=== PATIENT | male | born 1985 | race American Indian/Alaskan Native ===

== ENCOUNTER 2016-10-21 08:38 | Emergency (ER) | payer MEDICARE ==
[2016-10-21 10:10] LABS: Basophils % (Auto) 0.6 % (0.0-1.8); Eosinophils % (Auto) 1.2 % (0.0-4.3); Hematocrit 34.9 % (35.5-45.6); Mean Corpuscular HGB Conc 32 % (32-34); Mean Corpuscular Volume 81 fl (84-94); Platelet Count 264 K/mm3 (140-440); Red Cell Distribution Width 15.6 % (13.2-15.2); White Blood Count 7.6 K/mm3 (4.5-11.0)
[2016-10-21 10:26] LABS: Anion Gap 14 mmol/L; Blood Urea Nitrogen 6 mg/dL (9-20); Calcium 8.9 mg/dL (8.4-10.2); Carbon Dioxide 31 mmol/L (22-30); Chloride 98.4 mmol/L (98-107); Creatine Kinase 141 units/L (55-170); Glucose 110 mg/dL (75-100); Potassium 4.7 mmol/L (3.6-5.0); Sodium 139 mmol/L (137-145)
--- NOTE | 2016-10-21 10:26 | Emergency Department Report ---
HPI - General Chief Complaint: Extremity Injury, Lower Time Seen by Provider: 10/21/16 09:12 - HPI HPI: This is a 31 year-old male presents to the emergency department with complaint of a three-day history of right leg pain. The patient has a history of significant right lower extremity lymphedema secondary to previous DVTs. He says that the size of the leg is consistent with how it always has but the pain has been getting progressively worse. He usually has some type of pain medication to take with exacerbations of this lymphedema but he just moved here and does not have a primary care physician. He takes Xarelto for his history of DVT and says he takes compliantly. He denies any shortness breath, chest pain, fever. No sick contacts at home. ED Past Medical Hx - Past Medical History Previous Medical History?: Yes Hx Deep Vein Thrombosis: Yes (jian legs) Additional medical history: Lymphedema - Surgical History Past Surgical History?: No - Social History Smoking Status: Never Smoker Substance Use Type: Prescribed, Other - Medications Home Medications: Home Medications Medication Instructions Recorded Confirmed Last Taken Type HYDROcodone/APAP 5-325 [[place] 1 each PO Q6HR PRN #14 tablet 10/21/16 Unknown Rx 5/325] Rivaroxaban [Xarelto] 20 mg PO QDAY 10/21/16 10/21/16 10/21/16 History ED Review of Systems ROS: Stated complaint: SEVERE PAIN L LEG AND THIGH FROM FALL Other details as noted in HPI Comment: All other systems reviewed and negative Constitutional: denies: chills, fever Eyes: denies: eye pain, eye discharge, vision change ENT: denies: ear pain, throat pain Respiratory: denies: cough, shortness of breath, wheezing Cardiovascular: denies: chest pain, palpitations Gastrointestinal: denies: abdominal pain, nausea, diarrhea Genitourinary: denies: urgency, dysuria Musculoskeletal: arthralgia, myalgia Skin: denies: rash, lesions Neurological: denies: headache, weakness, paresthesias Physical Exam - Physical Exam Vital Signs: Vital Signs 10/21/16 10/21/16 10/21/16 08:46 08:53 09:00 Temperature 98.6 F Pulse Rate 86 85 Respiratory 20 13 16 Rate Blood Pressure 126/78 122/70 O2 Sat by Pulse 100 98 98 Oximetry 10/21/16 09:30 Temperature Pulse Rate 81 Respiratory 17 Rate Blood Pressure 128/72 O2 Sat by Pulse 98 Oximetry Physical Exam: GENERAL: The patient is well-developed well-nourished. HENT: Normocephalic. Atraumatic. Patient has moist mucous membranes. EYES: Extraocular motions are intact. Pupils equal reactive to light bilaterally. NECK: Supple. Trachea is midline. CHEST/LUNGS: Clear to auscultation. There is no respiratory distress noted. HEART/CARDIOVASCULAR: Regular. There is no tachycardia. There is no gallop rub or murmur. ABDOMEN: Abdomen is soft, nontender. Patient has normal bowel sounds. There is no abdominal distention. SKIN: The patient has severe right lower extremity lymphedema that he says is chronic and unchanged in size. There is no warmth, erythema or fluctuance. NEURO: The patient is awake, alert, and oriented. The patient is cooperative. The patient has no focal neurologic deficits. The patient has normal speech and gait. MUSCULOSKELETAL: There is some reproducible tenderness to palpation along the right lower extremity with patient has severe lymphedema. ED Course Vital Signs 10/21/16 10/21/16 10/21/16 08:46 08:53 09:00 Temperature 98.6 F Pulse Rate 86 85 Respiratory 20 13 16 Rate Blood Pressure 126/78 122/70 O2 Sat by Pulse 100 98 98 Oximetry 10/21/16 09:30 Temperature Pulse Rate 81 Respiratory 17 Rate Blood Pressure 128/72 O2 Sat by Pulse 98 Oximetry ED Medical Decision Making - Lab Data Result diagrams: 10/21/16 09:52 10/21/16 09:52 - Medical Decision Making 31-year-old male presents to the emergency department with complaint of a 3 to four-day history of right lower extremity pain. He has a history of severe lymphedema secondary to multiple DVTs in the past. He does not feel that the leg is any more swollen than usual. He denies any skin color change he has not taken anything for his symptoms prior to presentation. Labs are unremarkable and do not show any etiology of his symptoms. I did not feel that a Doppler ultrasound was necessary as the patient is on several toe and has been taking it compliantly. There has been no trauma or obvious deformity and therefore x- ray imaging is also not necessary at this time. The patient was given a dose of nonnarcotic pain medication and upon reevaluation he says he is feeling some improvement. He will be placed on crutches to help support the painful right leg and the lymphedema. He will be given pain medication to take and multiple referrals for primary care. Vital signs stable throughout his ED course. He will return to the ER with any worsening of symptoms or any acute distress. - Differential Diagnosis lymphedema, DVT, cellulitis Critical Care Time: No Critical care attestation.: If time is entered above; I have spent that time in minutes in the direct care of this critically ill patient, excluding procedure time. ED Disposition Clinical Impression: Right leg pain, Lymphedema Disposition: TO HOME OR SELFCARE Is pt being admited?: No Condition: Stable Instructions: Arthralgia (ED), Lymphedema (ED) Additional Instructions: Please follow up with a primary care physician in the next few days. Return to the emergency Department with any worsening of her symptoms or any acute distress. You have been prescribed a medication that is sedating and therefore should not be taken prior to driving, working, and responsible for children and in no way should be mixed with alcohol of any quantity. Prescriptions: HYDROcodone/APAP 5-325 [[place] 5/325] 1 each PO Q6HR PRN #14 tablet PRN Reason: Pain Referrals: PRIMARY CARE, [Primary Care Provider] - 3-5 Days VICK ALCANTAR MD [Staff Physician] - 3-5 Days DONN HIGGINS MD [Staff Physician] - 3-5 Days [facility] [Outside] - 3-5 Days Time of Disposition: 11:16
[2016-10-21 10:31] LABS: Mean Corpuscular Hemoglobin 26 pg (28-32)
[2016-10-21] MEDS ORDERED: TORADOL IM ONE (10:34)
[2016-10-21] MEDS ORDERED: TORADOL ONE (10:41)
[2016-10-21] MEDS ORDERED: TORADOL IV ONE (10:45)
[2016-10-21 11:33] VITALS: BP 120/75
== END 2016-10-21 11:32 | disposition home or self-care (01) ==
LOC: ED 08:38
DX: M79.604 Pain in right leg (principal); I89.0 Lymphedema, not elsewhere classified; I82.403 Acute embolism and thrombosis of unspecified deep veins of lower extremity, bilateral
CPT/HCPCS: 36415; 80048; 82550; 85025; 96374; 99283; J1885

== ENCOUNTER 2017-03-23 16:31 | Emergency (ER) | payer MEDICARE ==
[2017-03-23] MEDS ORDERED: ASPIRIN PO ONE (17:39)
[2017-03-23 19:23] LABS: Hematocrit 39.3 % (35.5-45.6); Hemoglobin 12.2 gm/dl (11.8-15.2); Mean Corpuscular HGB Conc 31 % (32-34); Mean Corpuscular Hemoglobin 25 pg (28-32); Mean Corpuscular Volume 80 fl (84-94); Platelet Count 216 K/mm3 (140-440); Red Blood Count 4.94 M/mm3 (3.65-5.03); Red Cell Distribution Width 18.6 % (13.2-15.2)
[2017-03-23 19:41] LABS: BUN/Creatinine Ratio 10; Blood Urea Nitrogen 9 mg/dL (9-20); Calcium 9.6 mg/dL (8.4-10.2); Hemolysis Index 3
[2017-03-23 19:58] LABS: Band Neutrophils # (Manual) 0.4 K/mm3; Total Cells Counted 100
[2017-03-23 19:59] LABS: Platelet Estimate Consistent w Auto
[2017-03-23 21:36] VITALS: BP 128/93
[2017-03-23] MEDS ORDERED: TYLENOL PO ONE (23:11)
[2017-03-23] MEDS ORDERED: TYLENOL ONE (23:13)
[2017-03-23] MEDS ORDERED: ASPIRIN ONE (23:13)
== END 2017-03-24 07:40 | disposition left against medical advice (07) ==
LOC: ED 16:31
DX: Z04.1 Encounter for examination and observation following transport accident (principal); Z53.21 Procedure and treatment not carried out due to patient leaving prior to being seen by health care provider
CPT/HCPCS: 36415; 80048; 84484; 85007; 85025; 93005; 93010

== ENCOUNTER 2017-09-08 16:52 | Emergency (ER) | payer OTHER, MEDICARE ==
[2017-09-08] MEDS ORDERED: MOTRIN PO ONE (18:29)
[2017-09-08] MEDS ORDERED: NORCO 5/325 PO ONE (18:29)
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
[2017-09-08 21:23] VITALS: BP 146/76
== END 2017-09-08 21:22 | disposition home or self-care (01) ==
LOC: ED 16:52
DX: S86.912A Strain of unspecified muscle(s) and tendon(s) at lower leg level, left leg, initial encounter (principal); E66.01 Morbid (severe) obesity due to excess calories; Z86.718 Personal history of other venous thrombosis and embolism; V89.2XXA Person injured in unspecified motor-vehicle accident, traffic, initial encounter; Y93.89 Activity, other specified; Y92.481 Parking lot as the place of occurrence of the external cause; Y99.8 Other external cause status
CPT/HCPCS: 99283